=== PATIENT | male | born 1970 | race Caucasian/White ===

== ENCOUNTER 2018-04-25 20:19 | Inpatient (IN) ==
[2018-04-25 21:23] LABS: Basophils % 0.7 %; Eosinophils # 0.2 K/mcL (0.0-0.6); Eosinophils % 3.4 %; Hematocrit 44.5 % (37.5-50.1); Immature Granulocytes % 0.2 % (0-4); Lymphocytes # 1.6 K/mcL (0.6-4.6); Lymphocytes % 28.7 %; Mean Corpuscular HGB Conc 33.7 g/dL (31.6-35.5); Mean Corpuscular Hemoglobin 28.6 pg (28.0-33.3); Mean Corpuscular Volume 84.8 fL (83.0-100.0); Mean Platelet Volume 9.8 fL (9.4-12.4); Monocytes # 0.5 K/mcL (0.0-1.3); Neutrophils # 3.2 K/mcL (1.6-8.9); Platelet Count 221 K/mcL (140-400); Red Blood Count 5.25 M/mcL (4.19-5.50); Red Cell Distribution Width 12.5 % (11.5-14.5)
--- NOTE | 2018-04-25 21:24 | Emergency Department Note ---
Disposition Clinical Impression: Auditory hallucinations Disposition: Still a Patient Condition: Good Referrals: NONE,PCP [Primary Care Provider] - Forms: ED Satisfaction Letter General Adult HPI - General Stated complaint: "feels like someone is after him" Time Seen by Provider: 04/25/18 20:33 Nursing Notes Reviewed: Yes Vital Signs Reviewed: Yes - History of Present Illness HPI Narrative: Patient is a 47-year-old male with history of schizophrenia takes Rispiradone for. In triage patient states he came into the ED because people were following him. When speaking with patient he said he is having auditory hallucinations. Patient mostly has tangential topics of conversation. Patient states the voices are in his head watching him in case he "snitches" on making methamphetamines. Patient admits to using meth 3 days ago. Patient denies any suicidal ideation or homicidal ideation. The voices in his head are not telling him to do anything they are just monitoring his actions. Patient is very concerned that everything is confidential. Reassured him several times that everything was confidential. - Related Data Allergies Allergy/AdvReac Type Severity Reaction Status Date / Time No Known Allergies Allergy Verified 10/31/15 21:18 Constitutional: Denies: fever Eyes: Denies: vision change Cardiovascular: Denies: chest pain Respiratory: Denies: cough Gastrointestinal: Denies: abdominal pain Integumentary: Denies: rash Neurological: Denies: headache Psychiatric: Reports: as per HPI Endocrine: Denies: fatigue Hematological/Lymphatic: Denies: easy bruising Past Medical History - Past Medical History Medical history: Reports: no medical history Psychiatric history: Reports: no psych history - Social History Smoking Status: Current every day smoker Smokeless Tobacco Status: No Alcohol use: Reports: rarely Drug use: Reports: IV Drug Use Physical Exam Patient is lying in bed playing with his wallet. He is mumbling to himself. Is responsive to questioning - General Limitations: no limitations General appearance: alert - Head Head exam: atraumatic, normocephalic - Eye Eye exam: Present: EOMI - Chest Chest inspection: Present: normal inspection, symmetric chest wall rise. Absent: tenderness - Respiratory Respiratory exam: Present: normal lung sounds bilaterally. Absent: respiratory distress - Cardiovascular Cardiovascular exam: Present: regular rate, normal rhythm, normal heart sounds. Absent: systolic murmur, diastolic murmur, +S1, +S2 - Psychiatric Psychiatric exam: Present: other (Auditory hallucinations. Incoherent thoughts, tangential speech). Absent: homicidal ideation, suicidal ideation - Skin Skin exam: Present: warm, dry, intact Medical Decision Making - MDM Narrative Medical decision making narrative: Labs are ordered patient has history of schizophrenia. likely is related to schizophrenia. Labs are normal CBC, BMP, urine drug screen, urinalysis, ethanol level. Denies suicidal ideation or homicidal ideation Follow-up with [facility] Patient was signed out to night team - Lab Data Result diagrams: 04/25/18 21:05 04/25/18 21:05
[2018-04-25 21:39] LABS: Acetaminophen < 10 mcg/mL (10-20); BUN/Creatinine Ratio 13 (6-26); Blood Urea Nitrogen 12 mg/dL (6-20); Calcium 9.7 mg/dL (8.6-10.3); Carbon Dioxide 29 mEq/L (23-29); Chloride 103 mEq/L (98-107); Ethanol < 10 mg/dL (Less than 10); Glucose 124 mg/dL (70-105); Osmolality,Calculated 287 (280-300); Potassium 3.9 mEq/L (3.5-5.1); Salicylate < 2.5 mg/dL (15.0-30.0); Sodium 138 mEq/L (136-145); eGFR For Non-African Americans > 60 (> 60)
[2018-04-25 21:40] LABS: Bilirubin,Urine Negative (Negative); Blood,Urine Negative (Negative); Clarity,Urine Clear (Clear); Color,Urine Yellow (Yellow); Glucose,Urine (UA) Normal (Normal); Ketones,Urine Negative (Negative); Leukocyte Esterase,Urine Negative (Negative); Nitrite,Urine Negative (Negative); PH,Urine 6.5 pH Units (5.0-8.0); Protein,Urine Negative (Neg-Trace); Specific Gravity,Urine 1.006 (1.010-1.025); Urobilinogen,Urine Normal (Normal)
--- NOTE | 2018-04-25 21:45 | Emergency Department Note ---
Disposition Clinical Impression: Auditory hallucinations, Chronic schizophrenia Disposition: Still a Patient Condition: Good Time of Disposition: 00:15 General Adult HPI - General Chief complaint: ED Psychiatric Symptoms Stated complaint: "feels like someone is after him" Time Seen by Provider: 04/25/18 20:33 Source: EMS Limitations: no limitations Nursing Notes Reviewed: Yes Vital Signs Reviewed: Yes - History of Present Illness Pain Scale: 0 - Related Data Allergies Allergy/AdvReac Type Severity Reaction Status Date / Time No Known Allergies Allergy Verified 10/31/15 21:18 Constitutional: Denies: fever Eyes: Denies: vision change Cardiovascular: Denies: chest pain Respiratory: Denies: cough Gastrointestinal: Denies: abdominal pain Integumentary: Denies: rash Neurological: Denies: headache Psychiatric: Reports: as per HPI Endocrine: Denies: fatigue Hematological/Lymphatic: Denies: easy bruising Past Medical History - Past Medical History Medical history: Reports: no medical history Psychiatric history: Reports: no psych history - Social History Smoking Status: Current every day smoker Smokeless Tobacco Status: No Alcohol use: Reports: rarely Drug use: Reports: IV Drug Use Physical Exam - General Limitations: no limitations General appearance: alert Course - Reevaluation(s) Reevaluation #1: Patient received in signout by the departing emergency medicine attending Chago Schofield at 2200. Patient was having persecutory hallucinations patient will has been medically cleared and will be evaluated by mental health services for disposition. Disposition pending Time: 21:45 Vital Signs Temperature 98.2 F 04/25/18 20:42 Pulse Rate 76 04/25/18 20:42 Respiratory Rate 18 04/25/18 20:42 Blood Pressure 155/100 04/25/18 20:42 O2 Sat by Pulse Oximetry 97 04/25/18 20:42 Temperature 98.2 F 04/26/18 03:51 Pulse Rate 97 04/26/18 03:51 Respiratory Rate 18 04/26/18 03:51 Blood Pressure 118/84 04/26/18 03:51 O2 Sat by Pulse Oximetry 97 04/26/18 03:51 Oxygen Delivery Oxygen Delivery Room Air Medical Decision Making - Lab Data Result diagrams: 04/25/18 21:05 04/25/18 21:05 Lab Results 04/25/18 04/25/18 04/25/18 Range/Units 21:05 21:05 21:30 WBC 5.6 (4.3-11.1) K/mcL RBC 5.25 (4.19-5.50) M/mcL Hgb 15.0 (12.9-16.9) g/dL Hct 44.5 (37.5-50.1) % MCV 84.8 (83.0-100.0) fL MCH 28.6 (28.0-33.3) pg MCHC 33.7 (31.6-35.5) g/dL RDW 12.5 (11.5-14.5) % Plt Count 221 (140-400) K/mcL MPV 9.8 (9.4-12.4) fL Immature Gran % 0.2 (0-4) % Seg Neutrophils % 58.0 % Lymphocytes % 28.7 % Monocytes % 9.0 % Eosinophils % 3.4 % Basophils % 0.7 % Neutrophils # 3.2 (1.6-8.9) K/mcL Lymphocytes # 1.6 (0.6-4.6) K/mcL Monocytes # 0.5 (0.0-1.3) K/mcL Eosinophils # 0.2 (0.0-0.6) K/mcL Basophils # 0.0 (0.0-0.2) K/mcL Sodium 138 (136-145) mEq/L Potassium 3.9 (3.5-5.1) mEq/L Chloride 103 (98-107) mEq/L Carbon Dioxide 29 (23-29) mEq/L BUN 12 (6-20) mg/dL Creatinine 0.95 (0.70-1.30) mg/dL Est GFR ( Amer) > 60 (> 60) Est GFR (Non-Af Amer) > 60 (> 60) BUN/Creatinine Ratio 13 (6-26) Glucose 124 H (70-105) mg/dL Calculated Osmolality 287 (280-300) Calcium 9.7 (8.6-10.3) mg/dL Urine Color (Yellow) Urine Clarity (Clear) Urine pH (5.0-8.0) pH Units Ur Specific [place] (1.010-1.025) Urine Protein (Neg-Trace) mg/dL Urine Glucose (UA) (Normal) mg/dL Urine Ketones (Negative) mg/dL Urine Blood (Negative) Urine Nitrite (Negative) Urine Bilirubin (Negative) Urine Urobilinogen (Normal) mg/dL Ur Leukocyte Esterase (Negative) Salicylates < 2.5 L (15.0-30.0) mg/dL Urine Opiates Screen Negative (Geeybr=010) ng/mL Acetaminophen < 10 L (10-20) mcg/mL Ur Barbiturates Screen Negative (Ibszoj=085) ng/mL Ur Phencyclidine Scrn Negative (Cutoff=25) ng/mL Ur Amphetamines Screen Positive H (Iufqgm=5118) ng/mL U Benzodiazepines Scrn Negative (Djfavf=781) ng/mL Urine Cocaine Screen Negative (Cutoff= 300) ng/mL U Marijuana (THC) Screen Negative (Cutoff = 50) ng/mL Ur Drug Screen Interp See Below Ethyl Alcohol < 10 (Less than 10) mg/dL 04/25/18 Range/Units 21:34 WBC (4.3-11.1) K/mcL RBC (4.19-5.50) M/mcL Hgb (12.9-16.9) g/dL Hct (37.5-50.1) % MCV (83.0-100.0) fL MCH (28.0-33.3) pg MCHC (31.6-35.5) g/dL RDW (11.5-14.5) % Plt Count (140-400) K/mcL MPV (9.4-12.4) fL Immature Gran % (0-4) % Seg Neutrophils % % Lymphocytes % % Monocytes % % Eosinophils % % Basophils % % Neutrophils # (1.6-8.9) K/mcL Lymphocytes # (0.6-4.6) K/mcL Monocytes # (0.0-1.3) K/mcL Eosinophils # (0.0-0.6) K/mcL Basophils # (0.0-0.2) K/mcL Sodium (136-145) mEq/L Potassium (3.5-5.1) mEq/L Chloride (98-107) mEq/L Carbon Dioxide (23-29) mEq/L BUN (6-20) mg/dL Creatinine (0.70-1.30) mg/dL Est GFR ( Amer) (> 60) Est GFR (Non-Af Amer) (> 60) BUN/Creatinine Ratio (6-26) Glucose (70-105) mg/dL Calculated Osmolality (280-300) Calcium (8.6-10.3) mg/dL Urine Color Yellow (Yellow) Urine Clarity Clear (Clear) Urine pH 6.5 (5.0-8.0) pH Units Ur Specific [place] 1.006 L (1.010-1.025) Urine Protein Negative (Neg-Trace) mg/dL Urine Glucose (UA) Normal (Normal) mg/dL Urine Ketones Negative (Negative) mg/dL Urine Blood Negative (Negative) Urine Nitrite Negative (Negative) Urine Bilirubin Negative (Negative) Urine Urobilinogen Normal (Normal) mg/dL Ur Leukocyte Esterase Negative (Negative) Salicylates (15.0-30.0) mg/dL Urine Opiates Screen (Actnkg=717) ng/mL Acetaminophen (10-20) mcg/mL Ur Barbiturates Screen (Kbiwog=118) ng/mL Ur Phencyclidine Scrn (Cutoff=25) ng/mL Ur Amphetamines Screen (Gzbiku=9756) ng/mL U Benzodiazepines Scrn (Ggmhff=637) ng/mL Urine Cocaine Screen (Cutoff= 300) ng/mL U Marijuana (THC) Screen (Cutoff = 50) ng/mL Ur Drug Screen Interp Ethyl Alcohol (Less than 10) mg/dL
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
[2018-04-25 21:54] LABS: Amphetamine Screen,Urine Positive ng/mL (Cutoff=1000); Barbiturate Screen,Urine Negative ng/mL (Cutoff=200); Benzodiazepines Screen,Urine Negative ng/mL (Cutoff=200); Cannabinoid Screen,Urine Negative ng/mL (Cutoff = 50); Cocaine Screen,Urine Negative ng/mL (Cutoff= 300); Opiate Screen,Urine Negative ng/mL (Cutoff=300); Phencyclidine Screen,Urine Negative ng/mL (Cutoff=25)
[2018-04-26] MEDS ORDERED: MOM Conc 10 ML UD.LIQ PO PRN (01:37)
[2018-04-26] MEDS ORDERED: Mag Hydrox/Al Hydrox/Simeth 30 ML UDC PO PRN (01:37)
[2018-04-26] MEDS ORDERED: hydrOXYzine pamoate 25 MG CAPSULE PO PRN (01:37)
[2018-04-26] MEDS ORDERED: traZODone 50 MG TABLET PO PRN (01:37)
[2018-04-26] MEDS ORDERED: *HR* LORazepam 2 MG/ML VIAL IM PRN (01:37)
[2018-04-26] MEDS ORDERED: *HR* LORazepam 1 MG TABLET PO PRN (01:37)
[2018-04-26] MEDS ORDERED: Haloperidol Lactate 5 MG/ML VIAL IM PRN (01:37)
[2018-04-26] MEDS ORDERED: Ibuprofen 400 MG TABLET PO PRN (01:37)
--- NOTE | 2018-04-26 01:54 | Emergency Department Note ---
Disposition Clinical Impression: Auditory hallucinations, Chronic schizophrenia Disposition: Admitted As Inpatient Condition: Good General Adult HPI - General Chief complaint: ED Psychiatric Symptoms Stated complaint: "feels like someone is after him" Time Seen by Provider: 04/25/18 20:33 Source: EMS Limitations: no limitations - History of Present Illness Pain Scale: 2 - Related Data Allergies Allergy/AdvReac Type Severity Reaction Status Date / Time No Known Allergies Allergy Verified 10/31/15 21:18 Constitutional: Denies: fever Eyes: Denies: vision change Cardiovascular: Denies: chest pain Respiratory: Denies: cough Gastrointestinal: Denies: abdominal pain Integumentary: Denies: rash Neurological: Denies: headache Psychiatric: Reports: as per HPI Endocrine: Denies: fatigue Hematological/Lymphatic: Denies: easy bruising Past Medical History - Past Medical History Medical history: Reports: no medical history Psychiatric history: Reports: no psych history - Social History Smoking Status: Current every day smoker Smokeless Tobacco Status: No Alcohol use: Reports: rarely Drug use: Reports: IV Drug Use Physical Exam - General Limitations: no limitations General appearance: alert Course Course Narrative: This patient was signed out to me at shift change from Dr. Acosta after being signed out to him from Dr. Schofield. Patient presented with paranoia and auditory hallucinations. At shift change she has been medically cleared and is awaiting psychiatric evaluation. Patient was seen and evaluated in the emergency department by the [address] psychiatry department and after evaluation patient is being admitted to the [address] psychiatric unit. Vital Signs Temperature 98.2 F 04/25/18 20:42 Pulse Rate 76 04/25/18 20:42 Respiratory Rate 18 04/25/18 20:42 Blood Pressure 155/100 04/25/18 20:42 O2 Sat by Pulse Oximetry 97 04/25/18 20:42 Temperature 98.2 F 04/25/18 20:42 Pulse Rate 91 04/26/18 00:37 Respiratory Rate 16 04/26/18 00:37 Blood Pressure 129/90 04/26/18 00:37 O2 Sat by Pulse Oximetry 97 04/26/18 00:37 Oxygen Delivery Oxygen Delivery Room Air Medical Decision Making - Lab Data Result diagrams: 04/25/18 21:05 04/25/18 21:05 Lab Results 04/25/18 04/25/18 04/25/18 Range/Units 21:05 21:05 21:30 WBC 5.6 (4.3-11.1) K/mcL RBC 5.25 (4.19-5.50) M/mcL Hgb 15.0 (12.9-16.9) g/dL Hct 44.5 (37.5-50.1) % MCV 84.8 (83.0-100.0) fL MCH 28.6 (28.0-33.3) pg MCHC 33.7 (31.6-35.5) g/dL RDW 12.5 (11.5-14.5) % Plt Count 221 (140-400) K/mcL MPV 9.8 (9.4-12.4) fL Immature Gran % 0.2 (0-4) % Seg Neutrophils % 58.0 % Lymphocytes % 28.7 % Monocytes % 9.0 % Eosinophils % 3.4 % Basophils % 0.7 % Neutrophils # 3.2 (1.6-8.9) K/mcL Lymphocytes # 1.6 (0.6-4.6) K/mcL Monocytes # 0.5 (0.0-1.3) K/mcL Eosinophils # 0.2 (0.0-0.6) K/mcL Basophils # 0.0 (0.0-0.2) K/mcL Sodium 138 (136-145) mEq/L Potassium 3.9 (3.5-5.1) mEq/L Chloride 103 (98-107) mEq/L Carbon Dioxide 29 (23-29) mEq/L BUN 12 (6-20) mg/dL Creatinine 0.95 (0.70-1.30) mg/dL Est GFR ( Amer) > 60 (> 60) Est GFR (Non-Af Amer) > 60 (> 60) BUN/Creatinine Ratio 13 (6-26) Glucose 124 H (70-105) mg/dL Calculated Osmolality 287 (280-300) Calcium 9.7 (8.6-10.3) mg/dL Urine Color (Yellow) Urine Clarity (Clear) Urine pH (5.0-8.0) pH Units Ur Specific [place] (1.010-1.025) Urine Protein (Neg-Trace) mg/dL Urine Glucose (UA) (Normal) mg/dL Urine Ketones (Negative) mg/dL Urine Blood (Negative) Urine Nitrite (Negative) Urine Bilirubin (Negative) Urine Urobilinogen (Normal) mg/dL Ur Leukocyte Esterase (Negative) Salicylates < 2.5 L (15.0-30.0) mg/dL Urine Opiates Screen Negative (Wopqsm=520) ng/mL Acetaminophen < 10 L (10-20) mcg/mL Ur Barbiturates Screen Negative (Hwhibe=480) ng/mL Ur Phencyclidine Scrn Negative (Cutoff=25) ng/mL Ur Amphetamines Screen Positive H (Rjswya=5897) ng/mL U Benzodiazepines Scrn Negative (Pukjtk=404) ng/mL Urine Cocaine Screen Negative (Cutoff= 300) ng/mL U Marijuana (THC) Screen Negative (Cutoff = 50) ng/mL Ur Drug Screen Interp See Below Ethyl Alcohol < 10 (Less than 10) mg/dL 04/25/18 Range/Units 21:34 WBC (4.3-11.1) K/mcL RBC (4.19-5.50) M/mcL Hgb (12.9-16.9) g/dL Hct (37.5-50.1) % MCV (83.0-100.0) fL MCH (28.0-33.3) pg MCHC (31.6-35.5) g/dL RDW (11.5-14.5) % Plt Count (140-400) K/mcL MPV (9.4-12.4) fL Immature Gran % (0-4) % Seg Neutrophils % % Lymphocytes % % Monocytes % % Eosinophils % % Basophils % % Neutrophils # (1.6-8.9) K/mcL Lymphocytes # (0.6-4.6) K/mcL Monocytes # (0.0-1.3) K/mcL Eosinophils # (0.0-0.6) K/mcL Basophils # (0.0-0.2) K/mcL Sodium (136-145) mEq/L Potassium (3.5-5.1) mEq/L Chloride (98-107) mEq/L Carbon Dioxide (23-29) mEq/L BUN (6-20) mg/dL Creatinine (0.70-1.30) mg/dL Est GFR ( Amer) (> 60) Est GFR (Non-Af Amer) (> 60) BUN/Creatinine Ratio (6-26) Glucose (70-105) mg/dL Calculated Osmolality (280-300) Calcium (8.6-10.3) mg/dL Urine Color Yellow (Yellow) Urine Clarity Clear (Clear) Urine pH 6.5 (5.0-8.0) pH Units Ur Specific [place] 1.006 L (1.010-1.025) Urine Protein Negative (Neg-Trace) mg/dL Urine Glucose (UA) Normal (Normal) mg/dL Urine Ketones Negative (Negative) mg/dL Urine Blood Negative (Negative) Urine Nitrite Negative (Negative) Urine Bilirubin Negative (Negative) Urine Urobilinogen Normal (Normal) mg/dL Ur Leukocyte Esterase Negative (Negative) Salicylates (15.0-30.0) mg/dL Urine Opiates Screen (Ixnlpq=449) ng/mL Acetaminophen (10-20) mcg/mL Ur Barbiturates Screen (Qjikot=730) ng/mL Ur Phencyclidine Scrn (Cutoff=25) ng/mL Ur Amphetamines Screen (Unmfkg=9953) ng/mL U Benzodiazepines Scrn (Pjhfco=117) ng/mL Urine Cocaine Screen (Cutoff= 300) ng/mL U Marijuana (THC) Screen (Cutoff = 50) ng/mL Ur Drug Screen Interp Ethyl Alcohol (Less than 10) mg/dL
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
[2018-04-26] MEDS ORDERED: Nicotine 2 MG GUM BC PRN (17:48)
[2018-04-26 19:58] VITALS: BP 122/73
[2018-04-26] MEDS ORDERED: OLANZapine 10 MG TAB.RAPDIS PO SCH (21:00)
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
== END 2018-04-27 12:20 | disposition home or self-care (01) | DRG 776 ==
LOC: EMEROOARM 20:19 → 1ANU 04-26 01:16
PROVIDERS: ADMIT Psychiatry & Neurology Psychiatry; ATTEND Psychiatry & Neurology Psychiatry

== ENCOUNTER 2020-04-15 02:10 | Inpatient (IN) ==
[2020-04-15 03:13] LABS: Bilirubin,Urine Negative (Negative); Blood,Urine Negative (Negative); Clarity,Urine Clear (Clear); Color,Urine Yellow (Yellow); Glucose,Urine (UA) Normal (Normal); Ketones,Urine Negative (Negative); Leukocyte Esterase,Urine Negative (Negative); Nitrite,Urine Negative (Negative); Protein,Urine Trace mg/dL (Neg-Trace); Specific Gravity,Urine 1.023 (1.010-1.025); Urobilinogen,Urine Normal (Normal)
[2020-04-15 04:05] LABS: Acetaminophen < 10 mcg/mL (10-20); BUN/Creatinine Ratio 12 (6-26); Basophils # 0.1 K/mcL (0.0-0.2); Basophils % 0.9 %; Blood Urea Nitrogen 11 mg/dL (6-20); Calcium 9.4 mg/dL (8.6-10.3); Carbon Dioxide 25 mEq/L (23-29); Chloride 103 mEq/L (98-107); Eosinophils # 1.5 K/mcL (0.0-0.6); Ethanol < 10 mg/dL (Less than 10); Glucose 98 mg/dL (70-105); Hematocrit 44.8 % (37.5-50.1); Hemoglobin 14.7 g/dL (12.9-16.9); Immature Granulocytes % 0.3 % (0-4); Lymphocytes # 2.1 K/mcL (0.6-4.6); Lymphocytes % 23.8 %; Mean Corpuscular HGB Conc 32.8 g/dL (31.6-35.5); Mean Corpuscular Hemoglobin 27.7 pg (28.0-33.3); Mean Corpuscular Volume 84.4 fL (83.0-100.0); Mean Platelet Volume 10.6 fL (9.4-12.4); Monocytes # 0.7 K/mcL (0.0-1.3); Neutrophils # 4.5 K/mcL (1.6-8.9); Osmolality,Calculated 277 (280-300); Platelet Count 266 K/mcL (140-400); Potassium 4.1 mEq/L (3.5-5.1); Red Blood Count 5.31 M/mcL (4.19-5.50); Red Cell Distribution Width 12.5 % (11.5-14.5); Salicylate < 2.5 mg/dL (15.0-30.0); Sodium 134 mEq/L (136-145); eGFR For African Americans > 60 (> 60); eGFR For Non-African Americans > 60 (> 60)
[2020-04-15 04:09] LABS: Amphetamine Screen,Urine Positive ng/mL (Cutoff=1000); Barbiturate Screen,Urine Negative ng/mL (Cutoff=200); Benzodiazepines Screen,Urine Negative ng/mL (Cutoff=200); Cannabinoid Screen,Urine Negative ng/mL (Cutoff = 50); Cocaine Screen,Urine Negative ng/mL (Cutoff= 300); Opiate Screen,Urine Negative ng/mL (Cutoff=300); Phencyclidine Screen,Urine Negative ng/mL (Cutoff=25)
[2020-04-15] MEDS ORDERED: Haloperidol Lactate 5 MG/ML VIAL IM PRN (10:29)
[2020-04-15] MEDS ORDERED: hydrOXYzine pamoate 25 MG CAPSULE PO PRN (10:29)
[2020-04-15] MEDS ORDERED: *HR* LORazepam 1 MG TABLET PO PRN (10:29)
[2020-04-15] MEDS ORDERED: haloperidoL 5 MG TABLET PO PRN (10:29)
[2020-04-15] MEDS ORDERED: Acetaminophen 325 MG TABLET PO PRN (10:29)
[2020-04-15] MEDS ORDERED: QUEtiapine Fumarate 25 MG TABLET PO PRN (10:29)
[2020-04-15] MEDS ORDERED: *HR* LORazepam 2 MG/ML VIAL IM PRN (10:29)
[2020-04-15] MEDS ORDERED: MOM Conc 10 ML UD.LIQ PO PRN (10:29)
[2020-04-15] MEDS ORDERED: Mag Hydrox/Al Hydrox/Simeth 30 ML UDC PO PRN (10:29)
[2020-04-15] MEDS ORDERED: chlorproMAZINE 25 MG TABLET PO PRN (11:37)
[2020-04-15] MEDS ORDERED: ChlorproMAZINE 25 MG/ML AMPUL IM ONE (11:45)
[2020-04-15] MEDS ORDERED: OLANZapine 10 MG TAB.RAPDIS PO SCH (21:00)
[2020-04-15] MEDS: OXcarbazepine 150 MG TABLET PO SCH (21:43)
[2020-04-15 22:08] VITALS: BP 116/71
[2020-04-16] MEDS ORDERED: FLUoxetine 20 MG CAPSULE PO SCH (09:00)
[2020-04-16] MEDS: OXcarbazepine 150 MG TABLET PO SCH (13:36)
== END 2020-04-16 15:55 | disposition home or self-care (01) ==
LOC: EMEROOARM 02:10 → 1ANU 10:21
PROVIDERS: ADMIT Psychiatry & Neurology Psychiatry; ATTEND Psychiatry & Neurology Psychiatry